=== PATIENT | female | born 1985 | race Caucasian/White ===

== ENCOUNTER 2018-04-07 13:56 | Inpatient (IN) | payer SELFPAY ==
[~2018-04-07] VITALS: Ht 167.6 cm; Wt 105.2 kg
[~2018-04-07 13:56] MED LIST: NORG1TAB PO
[2018-04-07 14:36] LABS: CLARITY URINE CLOUDY (CLEAR); COLOR URINE YELLOW (YELLOW); KETONES URINE TRACE (NEGATIVE); LEUKOCYTE ESTERASE URINE 2+ (NEGATIVE); NITRITE URINE POSITIVE (NEGATIVE); OCCULT BLOOD URINE NEGATIVE (NEGATIVE); PH URINE >=9.0 (4.5-8.0); PROTEIN URINE 1+ (NEGATIVE); SPECIFIC GRAVITY URINE 1.024 (1.005-1.030)
[2018-04-07] MEDS ORDERED: SODIUM CHLORIDE 0.9% 1,000 ML IV ONE (15:48)
[2018-04-07] MEDS ORDERED: MORPHINE SULFATE 4 MG/ML CPJ (NOT FOR IM USE) IV STA (15:48)
[2018-04-07] MEDS ORDERED: FAMOTIDINE 20MG/2ML VIAL IV STA (15:48)
[2018-04-07] MEDS ORDERED: ONDANSETRON HCL 4MG/2ML VIAL IV STA (15:48)
[2018-04-07 16:14] LABS: BASOPHILS % 0.2 % (0.0-2.0); HEMATOCRIT. 42.6 % (36.0-48.0); HEMOGLOBIN. 14.6 g/dL (12.0-16.0); LYMPHOCYTES % 14.7 % (20.0-50.0); MEAN CORPUSCULAR HEMOGLOBIN 28.5 pg (28.0-32.0); MEAN CORPUSCULAR VOLUME 83.2 fL (81.0-99.0); MEAN PLATELET VOLUME 8.1 fl (7.4-10.4); MONOCYTES % 6.6 % (2.0-8.0); NEUTROPHILS % 78.5 % (40.0-76.0); PLATELET 233 x1000/uL (130-400); RED BLOOD CELL COUNT 5.12 mill/uL (4.2-5.4)
[2018-04-07 16:18] LABS: CHLORIDE 103 mEq/L (98-107)
[2018-04-07 16:21] LABS: PARTIAL THROMBOPLASTIN TIME 28.5 sec (23.4-31.0); PROTHROMBIN TIME 10.4 sec (9.4-11.6)
[2018-04-07 16:33] LABS: HCG SCREEN NEGATIVE
[2018-04-07] MEDS ORDERED: MORPHINE SULFATE 4 MG/ML CPJ (NOT FOR IM USE) IV ONE (18:15)
[2018-04-07] MEDS ORDERED: ONDANSETRON 4MG ODT PO ONE (18:15)
[2018-04-07] MEDS ORDERED: IOHEXOL-300 100 ML BOTTLE ONE (18:51)
[2018-04-07] MEDS ORDERED: METRONIDAZOLE 500 MG PREMIX 100 ML IV ONE (20:00)
[2018-04-07] MEDS ORDERED: LEVOFLOXACIN 500MG PREMIX 100 ML IV ONE (20:00)
[2018-04-07] MEDS ORDERED: POTASSIUM CHLORIDE 20MEQ TABLET SR PO ONE (20:15)
[2018-04-07] MEDS ORDERED: KETOROLAC 30MG/ML VIAL IV ONE (22:00)
[2018-04-08 09:00] VITALS: BP 109/71
[2018-04-08] MEDS ORDERED: CLONIDINE 0.1MG TABLET PO PRN ×2 (09:30→09:45)
[2018-04-08] MEDS ORDERED: IPRATROPIUM/ALBUTEROL 0.5-3(2.5)MG/3ML NEB INH PRN ×2 (09:30→09:45)
[2018-04-08] MEDS ORDERED: HYDROCODONE/ACETAMINOPHEN 5/325MG TABLET PO PRN ×2 (09:30→09:45)
[2018-04-08] MEDS ORDERED: HYDROCODONE/ACETAMINOPHEN 10/325MG TABLET PO PRN ×2 (09:30→09:45)
[2018-04-08] MEDS ORDERED: DOCUSATE SODIUM 100MG CAPSULE PO PRN (09:30)
[2018-04-08] MEDS ORDERED: MORPHINE SULFATE 4 MG/ML CPJ (NOT FOR IM USE) IV PRN (09:30)
[2018-04-08] MEDS ORDERED: ACETAMINOPHEN 650MG SUPP PR PRN ×2 (09:30→09:45)
[2018-04-08] MEDS ORDERED: ACETAMINOPHEN 650MG/20.3ML UDC GT PRN ×2 (09:30→09:45)
[2018-04-08] MEDS ORDERED: DIPHENHYDRAMINE 50MG/ML VIAL IV PRN ×2 (09:30→09:45)
[2018-04-08] MEDS ORDERED: GUAIFENESIN 200MG/10ML SUGAR FREE UDC PO PRN (09:30)
[2018-04-08] MEDS ORDERED: MAGNESIUM/ALUMINUM HYDROXIDE/SIMETHICONE 30ML UDC PO PRN ×2 (09:30→09:45)
[2018-04-08] MEDS ORDERED: ACETAMINOPHEN 325MG TABLET PO PRN ×2 (09:30→09:45)
[2018-04-08] MEDS ORDERED: NA PHOS,M-B/NA PHOS,DI-BA ENEMA 118ML PR PRN ×2 (09:30→09:45)
[2018-04-08] MEDS ORDERED: ENOXAPARIN 40MG/0.4ML SYR SUBCUT SCH (09:45)
[2018-04-08] MEDS ORDERED: ONDANSETRON HCL 4MG/2ML VIAL IV PRN (09:45)
[2018-04-08] MEDS ORDERED: MORPHINE SULFATE 2 MG/ML CPJ (NOT FOR IM USE) IV PRN (09:45)
[2018-04-08] MEDS ORDERED: SODIUM CHLORIDE 0.45% 1,000 ML IV SCH (09:45)
[2018-04-08] MEDS: SODIUM CHLORIDE 0.45% 1,000 ML IV SCH (11:15)
[2018-04-08] MEDS: PIPERACILLIN/TAZ 3.375G PREMIX 50 ML IV SCH ×2 (11:16→20:31)
[2018-04-08] MEDS: ENOXAPARIN 30MG/0.3ML SYR SUBCUT SCH ×2 (11:16→22:05)
[2018-04-08 12:00] VITALS: BP 110/50
[2018-04-08] MEDS ORDERED: METRONIDAZOLE 500 MG PREMIX 100 ML IV SCH (12:00)
[2018-04-08 13:39] LABS: BASOPHILS % 0.4 % (0.0-2.0); LYMPHOCYTES % 20.6 % (20.0-50.0); MEAN CORPUSCULAR HEMOGLOBIN 28.5 pg (28.0-32.0); MEAN CORPUSCULAR VOLUME 83.1 fL (81.0-99.0); MEAN PLATELET VOLUME 8.4 fl (7.4-10.4); MONOCYTES % 9.9 % (2.0-8.0); NEUTROPHILS % 69.1 % (40.0-76.0); PLATELET 202 x1000/uL (130-400); RED BLOOD CELL COUNT 4.58 mill/uL (4.2-5.4); RED CELL DISTRIBUTION WIDTH 14.4 % (11.6-14.6)
[2018-04-08] MEDS ORDERED: SODIUM CHLORIDE 0.9% INJ 3ML FLUSH IVF SCH (14:00)
[2018-04-08 14:12] LABS: CHLORIDE 103 mEq/L (98-107)
[2018-04-08] MEDS ORDERED: LOPERAMIDE 2 MG/10 ML UDC PO PRN (14:30)
[2018-04-08 16:00] VITALS: BP 102/68
[2018-04-08] MEDS: SODIUM CHLORIDE 0.9% INJ 3ML FLUSH IVF SCH ×2 (16:26→21:51)
[2018-04-08 17:16] LABS: CREATINE KINASE 60 IU/L (26-192)
[2018-04-08 17:17] LABS: CREATINE KINASE MB FRACTION < 0.5 ng/mL (0.5-3.6)
[2018-04-08 20:00] VITALS: BP 120/71
[2018-04-08] MEDS ORDERED: LEVOFLOXACIN 500MG PREMIX 100 ML IV SCH (20:00)
[2018-04-08 23:33] LABS: CREATINE KINASE 64 IU/L (26-192)
[2018-04-08 23:43] LABS: CREATINE KINASE MB FRACTION 0.6 ng/mL (0.5-3.6)
[2018-04-09] VITALS: BP 107/64
[2018-04-09] MEDS: SODIUM CHLORIDE 0.45% 1,000 ML IV SCH (03:14)
[2018-04-09] MEDS: PIPERACILLIN/TAZ 3.375G PREMIX 50 ML IV SCH ×2 (03:14→12:25)
[2018-04-09 04:00] VITALS: BP 99/56
[2018-04-09] MEDS: SODIUM CHLORIDE 0.9% INJ 3ML FLUSH IVF SCH (06:49)
[2018-04-09 07:34] LABS: BASOPHILS % 0.3 % (0.0-2.0); EOSINOPHILS % 0.1 % (0.0-5.0); HEMATOCRIT. 36.4 % (36.0-48.0); HEMOGLOBIN. 12.5 g/dL (12.0-16.0); LYMPHOCYTES % 26.8 % (20.0-50.0); MEAN CORPUSCULAR HEMOGLOBIN 28.3 pg (28.0-32.0); MEAN CORPUSCULAR VOLUME 82.4 fL (81.0-99.0); MEAN PLATELET VOLUME 8.4 fl (7.4-10.4); MONOCYTES % 12.3 % (2.0-8.0); NEUTROPHILS % 60.5 % (40.0-76.0); PLATELET 210 x1000/uL (130-400); RED BLOOD CELL COUNT 4.42 mill/uL (4.2-5.4)
[2018-04-09 08:00] VITALS: BP 130/70
[2018-04-09 08:17] LABS: CHLORIDE 106 mEq/L (98-107)
[2018-04-09] MEDS: ENOXAPARIN 30MG/0.3ML SYR SUBCUT SCH (08:31)
[2018-04-09 08:38] LABS: HDL CHOLESTEROL 33 mg/dL (40-59)
[2018-04-09 08:39] LABS: LDL CHOLESTEROL 87 mg/dL (5-100)
[2018-04-09] MEDS ORDERED: METR250T PO (09:47)
[2018-04-09 12:00] VITALS: BP 120/80
[2018-04-09 14:50] VITALS: BP 106/64
[2018-04-11 09:06] LABS: SACCHAROMYCES CEREVISIAE IGG <20.0 Units (0.0-24.9); SACCHAROMYCES CEREVISIAE IGM 31.3 Units (0.0-24.9)
[2018-04-11 13:11] LABS: ATYPICAL pANCA <1:20 titer (Neg:<1:20)
== END 2018-04-09 15:25 | disposition home or self-care (01) | DRG 249 ==
LOC: ER 15:44 → EDBEDREQ 19:04 → 6EST 20:01 → EDBEDREQ 04-08 05:49 → ENRESERV 04-08 07:15 → CANBEDREQ 04-08 08:43
PROVIDERS: ADMIT Family Medicine; ATTEND Family Medicine
DX: K52.9 Noninfective gastroenteritis and colitis, unspecified (principal); R16.1 Splenomegaly, not elsewhere classified; I10 Essential (primary) hypertension; E66.9 Obesity, unspecified; E86.0 Dehydration; Z68.37 Body mass index [BMI] 37.0-37.9, adult
CPT/HCPCS: 36415; 74022; 74177; 76700; 80053; 80061; 81003; 82550; 82553; 83605; 83690; 84484; 84703; 85025; 85610; 85730; 86256; 86671; 87015; 87040; 87045; 87077; 87086; 87186; 87427; 87449; 87493; 89055; J1650; J1885; J1956; J2270; J2405; J2543; J3490; J7030; Q0162; Q9967